=== PATIENT | male | born 1990 | race Caucasian/White ===

== ENCOUNTER 2021-06-12 20:34 | Emergency (ER) | payer BC ==
[~2021-06-12 20:34] MED LIST: KEFLEX500 MG PO; NAPROSYN500 MG PO
[2021-06-12 22:32] LABS: RED BLOOD COUNT 5.16 M/UL (4.20-5.50); WHITE BLOOD COUNT 10.9 K/UL (4.5-11.0)
[2021-06-12 22:51] LABS: BUN/CREATININE RATIO 14 (0-10)
[2021-06-12] MEDS ORDERED: BACTRIM DS TAB1 EACH PO (23:36)
[2021-06-12] MEDS ORDERED: IBUPROFEN800 MG PO (23:36)
[2021-06-12] MEDS ORDERED: CEPHALEXIN500 M1 PO (23:36)
== END 2021-06-13 00:14 | disposition home or self-care (01) ==
LOC: ER1 20:34
PROVIDERS: Physician Assistant
DX: L03.115 Cellulitis of right lower limb (principal); R31.9 Hematuria, unspecified; R79.1 Abnormal coagulation profile
CPT/HCPCS: 80053; 81001; 83605; 85025; 85379; 87040; 87086; 96372; 99283; J1650

== ENCOUNTER → 2021-06-13 | Outpatient (CLI) | payer MEDICAID ==
[~2021-06-13] MED LIST changes: +BACTRIM DS TAB1 EACH PO; +CEPHALEXIN500 M1 PO; +IBUPROFEN800 MG PO
== END ==
LOC: KOH-I 09:44
DX: R22.41 Localized swelling, mass and lump, right lower limb (principal)
CPT/HCPCS: 93971